=== PATIENT | male | born 1995 | race Hispanic/Latino ===

== ENCOUNTER → 2020-03-25 | Outpatient (CLI) | payer OTHER | LOC: M LABSMTC 08:53 | PROVIDERS: ATTEND Pediatrics | DX: Z20.822 Contact with and (suspected) exposure to COVID-19 (principal) ==

== ENCOUNTER 2020-08-24 17:18 | Emergency (ER) | payer OTHER ==
[~2020-08-24] VITALS: Ht 167.6 cm; Wt 77.3 kg
[2020-08-24 17:18] VITALS: BP 146/81
[2020-08-24] MEDS ORDERED: MORPHINE 4 MG/ML 1ML VIAL/SYRINGE (J2270) IM ONE (21:30)
[2020-08-24] MEDS ORDERED: methocarbamoL 500 MG TAB PO ONE (21:30)
[2020-08-24] MEDS ORDERED: KETOROLAC TROMETHAMINE 10 MG TAB PO ONE (21:30)
[2020-08-24] MEDS ORDERED: METH-1165 PO (22:25)
[2020-08-24] MEDS ORDERED: KETO10TAB PO (22:25)
== END 2020-08-24 22:35 | disposition home or self-care (01) ==
LOC: M ED 17:18
DX: S39.012A Strain of muscle, fascia and tendon of lower back, initial encounter (principal); X50.0XXA Overexertion from strenuous movement or load, initial encounter; Y92.9 Unspecified place or not applicable; Y93.9 Activity, unspecified; Y99.8 Other external cause status
CPT/HCPCS: 96372; 99282; J2270

== ENCOUNTER 2021-01-08 21:30 | Emergency (ER) | payer OTHER ==
[~2021-01-08] VITALS: Ht 167.6 cm; Wt 78.6 kg
[~2021-01-08 21:30] MED LIST: KETO10TAB PO; METH-1165 PO
[2021-01-08 21:31] VITALS: BP 134/62
== END 2021-01-08 21:43 | disposition left against medical advice (07) ==
LOC: M ED 21:30
DX: Z53.21 Procedure and treatment not carried out due to patient leaving prior to being seen by health care provider (principal)

== ENCOUNTER → 2023-07-28 | Outpatient (CLI) | payer OTHER ==
[~2023-07-28] MED LIST changes: +ISOVUE-300 61% 100ML VIAL As Ordered ONE; +LIDOCAINE 1% MDV 20ML VIAL As Ordered ONE; +PROHANCE 279.3MG/ML 5ML VIAL As Ordered ONE
== END ==
LOC: M RAD 08:47
PROVIDERS: ATTEND Physician Assistant
DX: M25.511 Pain in right shoulder (principal); S43.401A Unspecified sprain of right shoulder joint, initial encounter; X58.XXXA Exposure to other specified factors, initial encounter; Y92.9 Unspecified place or not applicable
CPT/HCPCS: 23350; 73223; 77002; A9576; Q9967